=== PATIENT | female | born 1985 | race Native Hawaiian/Other Pacific Islander ===

== ENCOUNTER 2017-10-02 10:50 | Emergency (ER) | payer BC ==
[2017-10-02] MEDS ORDERED: Lactated Ringer's 1,000 ML IV SCH (11:15)
[2017-10-02 11:26] VITALS: BMI 23.3
[2017-10-02 12:02] LABS: SQUAMOUS EPITHIAL < 1 /hpf (0-5); URINE BACTERIA RARE (<OCC); URINE BILIRUBIN NEGATIVE (NEGATIVE); URINE BLOOD NEGATIVE (NEGATIVE); URINE CLARITY CLEAR (Clear); URINE COLOR YELLOW (YELLOW); URINE GLUCOSE (UA) NEG (Normal); URINE LEUKOCYTE ESTERASE NEG Leu/uL (Negative); URINE PROTEIN NEGATIVE (NEGATIVE); URINE UROBILINOGEN 0.2-1.0 mg/dL (0.2-1.0)
[2017-10-02 12:05] LABS: BASO % 0.2 % (0.0-2.0); EOS # 0.1 K/uL (0.0-0.7); EOS % 0.8 % (0.0-4.0); HEMOGLOBIN 12.5 g/dL (12.0-16.0); LYMPH # 1.2 K/uL (1.0-4.3); LYMPH % 10.2 % (20.0-40.0); MEAN CORPUSCULAR HEMOGLOBIN 29.7 pg (27.0-31.0); MEAN CORPUSCULAR HGB CONC 33.4 g/dL (33.0-37.0); MEAN PLATELET VOLUME 9.7 fl (7.2-11.7); MONO # 0.5 K/uL (0.0-0.8); MONO % 4.5 % (0.0-10.0); NEUT # 9.8 K/uL (1.8-7.0); NEUT % 84.3 % (50.0-75.0); RBC 4.19 Mil/uL (3.80-5.20); RED CELL DISTRIBUTION WIDTH 13.6 % (11.5-14.5); WHITE BLOOD COUNT 11.6 K/uL (4.8-10.8)
[2017-10-02 16:58] VITALS: BP 101/64; PULSE 60
== END 2017-10-02 12:40 | disposition home or self-care (01) ==
LOC: H.EROB2 10:50 → H.L&D 11:25 → H.EROB2 12:40
DX: O26.92 Pregnancy related conditions, unspecified, second trimester (principal); R10.2 Pelvic and perineal pain; Z3A.22 22 weeks gestation of pregnancy

== ENCOUNTER 2018-02-05 03:47 | Inpatient (IN) | payer BC, OTHER ==
--- NOTE | 2018-02-05 03:59 | OBHP ---
Datetime: 10/02/2017 12:32 IP Adm Impression: , intrauterine IP Chief Complaint Other: low abdominal pains IP Adm Impression Other: abdominal pains IP Admit Plan: Observation/Evaluation; Discharge home Admit Comment, IP Provider: pt evaluated no cervical changes no UC and U/A neg D/C home with appt to see surgeon for r/o hernia Instructions given Extremities - PN: Normal Abdomen - PN: Abnormal Breast - PN: Not Done Lungs - PN: Normal Heart - PN: Normal Thyroid - PN: Normal Neurologic - PN: Normal HEENT - PN: Normal General - PN: Normal FHR - Baseline A Provider: 150's Membranes, Provider: Intact Contraction Comments Provider: none Comments, ACOG Physical Exam: Abd gravid ND, fundus not tender Gestation - Est Wks by US: 28 wks EGA AdmitDate IP: 22.3 Vital Signs Provider: Reviewed IP Chief Complaint: Other Dilatation, Provider: closed Effacement, Provider: none Genitourinary Exam: Normal DTRs - PN: Normal
[2018-02-05 04:42] VITALS: BMI 27.8
[2018-02-05 06:30] VITALS: RESP 20; O2SAT 100
[2018-02-05 06:40] LABS: BASO % 0.3 % (0.0-2.0); EOS # 0.1 K/uL (0.0-0.7); EOS % 1.2 % (0.0-4.0); HEMOGLOBIN 12.9 g/dL (12.0-16.0); LYMPH # 1.6 K/uL (1.0-4.3); LYMPH % 15.1 % (20.0-40.0); MEAN CORPUSCULAR HEMOGLOBIN 28.6 pg (27.0-31.0); MEAN CORPUSCULAR HGB CONC 32.8 g/dL (33.0-37.0); MONO # 0.9 K/uL (0.0-0.8); MONO % 8.3 % (0.0-10.0); NEUT # 8.1 K/uL (1.8-7.0); NEUT % 75.1 % (50.0-75.0); RBC 4.53 Mil/uL (3.80-5.20); RED CELL DISTRIBUTION WIDTH 14.3 % (11.5-14.5); WHITE BLOOD COUNT 10.7 K/uL (4.8-10.8)
--- NOTE | 2018-02-05 08:13 | OBHP ---
Datetime: 02/05/2018 05:02 IP Adm Impression: Term, intrauterine IP Admit Plan: Admit to unit; Observation/Evaluation Admit Comment, IP Provider: 32 y/o at EGA of 40.3 weeks by LMP with GRIS 02/02/18, w ho presents to L_D with c/o painful pelvic cramping contractions that according to patient increased in intensity at 2AM, Q 6 minutes apart. Patient reports vaginal spotting of brownish blood and clear mucus first noticed on Sunday 6PM w/o contractions, patient states the contx started on Sunday in the morning. Patient reports +FM. Denies LOF, PIKE, dizziness, CP, fever, N/V, SOB or dysuria. ROS: All systems reviewed and found unremarkable, except as per HPI. PMHx: Denies OBGYN: , patient has h/o SAB in 2009 at 9 weeks GA. Provider: Dr Ingram. Meds: PNVit Allergies: Denies FMHx: Denies SurgHx: None SocHx: Denies smoking/drug use/ETOH Labs: HIV negative 06/22/17, HBsAg 06/20 neg, Rubella 06/20 +, RPR 06/20 neg. ABORh: AB+ PE: Refer to Physical exam section A/P 32 y/o at EGA of 40.3 weeks by LMP with GRIS 02/02/18, presenting with increasing painful contractions Q4 to 6 min in early labor. -Admit to L_D for further management -VS monitoring -FHR monitoring Case discussed with attending Slade Ahmadi MD PGY1 Addendum by Dr. Sanchez: I have evaluated the patient independently and I agree with the above Abdomen - PN: Normal Lungs - PN: Normal Heart - PN: Normal HEENT - PN: Normal General - PN: Normal FHR - Baseline A Provider: 130-140s IP Hx Assessment: The History has been Reviewed and is Current EGA AdmitDate IP: 40.3 Vital Signs Provider: Reviewed; Within Normal Limits IP Chief Complaint: Uterine contractions NICHD Variability Prov Fetus A: Moderate 6-25bpm FHR Category Provider Fetus A: Category I NICHD Decel Fetus A IP Provider: None Dilatation, Provider: 4 Datetime: 02/05/2018 04:40 Neurologic - PN: Normal Comments, ACOG Physical Exam: Extremities: LE pedal edema present
[2018-02-05] MEDS: Lactated Ringer's 1,000 ML IV SCH ×2 (08:50→10:00)
[2018-02-05] MEDS ORDERED: Fentanyl/Bupivacaine HCl 250 ML EPI ONE (09:21)
[2018-02-05] MEDS ORDERED: Oxytocin 30 UNIT 30 UNITS/500 ML BAG IV ONE (09:39)
[2018-02-05] MEDS ORDERED: OXYTOCIN/0.9 % NS 20 UNIT/1,000 ML BAG IV SCH (09:45)
[2018-02-05] MEDS ORDERED: Oxytocin 30 units/LR 500ML 30 UNITS/500 ML BAG IV ONE ×2 (10:15→11:30)
[2018-02-05] MEDS ORDERED: Lactated Ringer's 1,000 ML IV SCH ×2 (10:30→19:19)
[2018-02-05] MEDS ORDERED: Lidocaine Hydrochloride 0 ML INJ ONE (10:43)
--- NOTE | 2018-02-05 11:27 | OBADHP ---
Datetime: 02/05/2018 05:02 Admit Comment, IP Provider: 32 y/o at EGA of 40.3 weeks by LMP with GRIS 02/02/18, w ho presents to L_D with c/o painful pelvic cramping contractions that according to patient increased in intensity at 2AM, Q 6 minutes apart. Patient reports vaginal spotting of brownish blood and clear mucus first noticed on Sunday 6PM w/o contractions, patient states the contx started on Sunday in the morning. Patient reports +FM. Denies LOF, PIKE, dizziness, CP, fever, N/V, SOB or dysuria. ROS: All systems reviewed and found unremarkable, except as per HPI. PMHx: Denies OBGYN: , patient has h/o SAB in 2009 at 9 weeks GA. Provider: Dr Ingram. Meds: PNVit Allergies: Denies FMHx: Denies SurgHx: None SocHx: Denies smoking/drug use/ETOH Labs: HIV negative 06/22/17, HBsAg 06/20 neg, Rubella 06/20 +, RPR 06/20 neg. ABORh: AB+ PE: Refer to Physical exam section A/P 32 y/o at EGA of 40.3 weeks by LMP with GRIS 02/02/18, presenting with increasing painful contractions Q4 to 6 min in early labor. -Admit to L_D for further management -VS monitoring -FHR monitoring Case discussed with attending Slade Ahmadi MD PGY1 Addendum by Dr. Sanchez: I have evaluated the patient independently and I agree with the above Extremities - PN: Normal Abdomen - PN: Normal Back - PN: Normal Breast - PN: Not Done Lungs - PN: Normal Heart - PN: Normal Thyroid - PN: Normal Neurologic - PN: Not Done HEENT - PN: Normal General - PN: Normal Presentation-Admit: Cephalic FHR - Baseline A Provider: 130-140s Membranes, Provider: Intact Comments, ACOG Physical Exam: Abdomen: Gravid Extremities: no calf tenderness Gestation - Est Wks by US: 40+ IP Hx Assessment: The History has been Reviewed and is Current Vital Signs Provider: Reviewed; Within Normal Limits IP Chief Complaint: Uterine contractions NICHD Variability Prov Fetus A: Moderate 6-25bpm FHR Category Provider Fetus A: Category I NICHD Decel Fetus A IP Provider: None Dilatation, Provider: 4 Genitourinary Exam: Normal DTRs - PN: Normal EGA AdmitDate IP: 40.3 IP Adm Impression: Term, intrauterine IP Admit Plan: Admit to unit; Observation/Evaluation Datetime: 10/02/2017 12:32 IP Chief Complaint Other: low abdominal pains IP Adm Impression Other: abdominal pains Contraction Comments Provider: none Effacement, Provider: none
--- NOTE | 2018-02-05 15:53 | OBDS ---
MATERNAL INFORMATION Estimated Blood Loss (ml): 250 Maternal Complications: None Provider Comments: Delivered a living baby girl appears term cried spontaneously, 9/9 AF clear Nuchal cord x1 loose undone prior to full delivery, Placenta delivered complete and intact Episiotom y repaired as above Uterus contracted well Tolerated procedure well no complications Rectal done no d efects LABOR SUMMARY EDC: 02/02/2018 00:00 No. Babies in Womb: 0 LABOR INFORMATION Group B Beta Strep: Negative Steroids Given: None Reason Steroids Not Administered: Not Applicable Other Reason Not Administered: n/A MEMBRANES Membranes Rupture Method: Spontaneous Rupture of Membranes: 02/05/2018 12:50 Amniotic Fluid Color: Clear Amniotic Fluid Amount: Moderate Amniotic Fluid Odor: Normal VAGINAL DELIVERY Episiotomy: Median Laceration Extension: N/A Laceration Type: None Laceration Repair: Not Applicable Laceration Repair Note: midline episiotomy 1-2nd dg repaired with 2-0 chromic interrupted for deep t issue and continously for superficial No complications Sponge Count Correct: Yes Sharps Count Correct: Yes Count Comment: count correct and verified by tech CSECTION DELIVERY Primary Indication: N/A Secondary Indication: N/A CSection Incision: N/A Uterine Closure: N/A BABY A INFORMATION Forceps: N/A Vacuum Extraction: N/A Shoulder Dystocia : No PRESENTATION/POSITION BABY A Presentation: Cephalic Cephalic Presentation: Vertex Vertex Position: Left Occipital Anterior Breech Presentation: N/A PLACENTA INFORMATION BABY A Placenta Method of Delivery: Spontaneous CORD INFORMATION BABY A Nuchal Cord : Around Neck x1, Loose
[2018-02-05] MEDS ORDERED: Oxycodone/Acetaminophen 5/325 mg Tab PO PRN ×2 (15:54→19:19)
[2018-02-05] MEDS ORDERED: Benzocaine/Menthol SPRAY TOP PRN ×2 (15:54→19:19)
[2018-02-06 06:56] LABS: BASO % 0.1 % (0.0-2.0); EOS # 0.1 K/uL (0.0-0.7); EOS % 0.9 % (0.0-4.0); HEMOGLOBIN 10.7 g/dL (12.0-16.0); LYMPH # 1.4 K/uL (1.0-4.3); LYMPH % 10.6 % (20.0-40.0); MEAN CELL VOLUME 86.5 fl (81.0-99.0); MEAN CORPUSCULAR HEMOGLOBIN 28.1 pg (27.0-31.0); MEAN CORPUSCULAR HGB CONC 32.5 g/dL (33.0-37.0); MEAN PLATELET VOLUME 9.7 fl (7.2-11.7); MONO # 0.8 K/uL (0.0-0.8); MONO % 6.2 % (0.0-10.0); NEUT % 82.2 % (50.0-75.0); RBC 3.82 Mil/uL (3.80-5.20); RED CELL DISTRIBUTION WIDTH 14.6 % (11.5-14.5); WHITE BLOOD COUNT 13.4 K/uL (4.8-10.8)
[2018-02-06] MEDS ORDERED: Prenatal Multivit/Folic Acid/Iron Tab PO SCH (09:00)
[2018-02-06] MEDS: Prenatal Multivit/Folic Acid/Iron Tab PO SCH (09:19)
[2018-02-06] MEDS ORDERED: Influenza Vaccine (5 YR UP)/PF 60 MCG/0.5 ML SYR IM ONE (09:45)
--- NOTE | 2018-02-06 11:17 | OBPPN ---
Datetime: 02/06/2018 11:02 PP Pain Prov: Within normal limits PP Nausea Prov: Denies PP Flatus Prov: Yes PP BM Prov: No PP Breasts Prov: Normal PP Heart Prov: Normal PP Lungs Prov: Normal PP Abdomen/Uterus Prov: Normal PP Lochia Prov: Normal PP Vulva/Perineum Prov: Normal PP CVA Tenderness Prov: Normal PP Extremities Prov: Normal PP Progress Prov: Normal PP Impression Prov: Normal progression PP Plan Prov: Continue present management PP Progress Note Prov: stable ppd1 continue present care give laxative as ordered IP PP Procedures: None Vital Signs Provider PP: Reviewed; Within Normal Limits
[2018-02-06] MEDS: Hydrocortisone 2.5% (Rectal) CREAM PR SCH (16:08)
--- NOTE | 2018-02-07 08:13 | OBDCSUM ---
Datetime: 02/07/2018 08:08 Discharged to, Provider: Home Follow up at, Provider: Disch Instr Activity: Bedrest; May be up to bathroom; May be up for meals; May Shower Disch Instr Diet: Regular Discharge Instructions, Provider: Routine instructions given Discharge Diagnosis, Provider: Term Delivered Discharge Time: 02/07/2018 08:09 Follow up in weeks, Provider: 5-6 weeks Disch Referrals: None Disch Activity Restrictions: No exercising; No lifting; No driving; Minimize walking; Minimize stair -climbing; No sexual activity; Nothing in vagina - [place], tampons, douche Discharge Comment, Provider: call office if any problems rto 5-6 weeks Contraception after Delivery: Undecided
[2018-02-07] MEDS: Hydrocortisone 2.5% (Rectal) CREAM PR SCH (09:07)
[2018-02-07] MEDS: Prenatal Multivit/Folic Acid/Iron Tab PO SCH (09:07)
[2018-02-07 18:15] VITALS: BP 114/72; PULSE 65; TEMP 98.2
== END 2018-02-07 12:40 | disposition home or self-care (01) | DRG 807 ==
LOC: H.EROB2 03:47 → H.L&D 06:02 → H.OB/GYN 17:25
PROVIDERS: ADMIT Specialist; ATTEND Specialist
PROC: 10E0XZZ Delivery of Products of Conception, External Approach (ICD-10-PCS; principal; 2018-02-05)
PROC: 0W8NXZZ Division of Female Perineum, External Approach (ICD-10-PCS; 2018-02-05)
PROC: 4A1HXCZ Monitoring of Products of Conception, Cardiac Rate, External Approach (ICD-10-PCS; 2018-02-05)
PROC: 3E02340 Introduction of Influenza Vaccine into Muscle, Percutaneous Approach (ICD-10-PCS; 2018-02-06)
DX: O48.0 Post-term pregnancy (principal); O69.81X0 Labor and delivery complicated by cord around neck, without compression, not applicable or unspecified; Z37.0 Single live birth; Z3A.40 40 weeks gestation of pregnancy; Z23 Encounter for immunization